=== PATIENT | female | born 1965 | race African-American/Black ===

== ENCOUNTER 2022-12-30 15:17 | Emergency (ER) | payer OTHER, SELFPAY ==
--- NOTE | ~2022-12-30 | XR_ITS ---
EXAMINATION: XR hip RT min 2V DATE: 12/30/2022 16:23 INDICATION: Right hip pain and swelling. TECHNIQUE: 2 views of right hip were obtained. COMPARISON: None. FINDINGS: Bone alignment is normal. No fracture. There is mild right hip osteoarthritis. IMPRESSION: 1. Mild right hip osteoarthritis. Reviewed, dictated and finalized at location A.
--- NOTE | ~2022-12-30 | US_ITS ---
EXAMINATION: US abdomen limited DATE: 12/30/2022 18:42 INDICATION: n/v, elevated lipase TECHNIQUE: Multiple grayscale and Doppler ultrasound images of limited portions of the abdomen were o btained. COMPARISON: None available. FINDINGS: The visualized portions of the pancreas are normal. The liver is enlarged with increased ec hogenicity and normal echotexture. No surface nodularity. Normal hepatopetal flow in the main portal vein. The gallbladder is normal with no abnormal wall thickening, pericholecystic fluid or stones. Th e common bile duct measures 6 mm. There was no sonographic Carmona sign. IMPRESSION: Normal limited abdominal ultrasound findings. Reviewed, dictated and finalized at location K.
[2022-12-30 15:27] VITALS: BP 158/106; PULSE 79; RESP 20; TEMP 36.2; O2SAT 98
--- NOTE | 2022-12-30 16:22 | ED.GENADULT ---
HPI - General Adult General Chief complaint: Unspecified Stated complaint: hip pain/ nausea/vomiting Time Seen by Provider: 12/30/22 15:47 History of Present Illness HPI narrative: 57 year old female here for evaluation of nausea, vomiting and diarrhea x7 days. Patient states that she has had numerous episodes of vomiting nonbloody/nonbilious emesis and numerous episodes of watery stools over the past 7 days. She has been able to tolerate some p.o. but feels dehydrated. She took a COVID test at home that was negative. States that 3 days ago she started to have right-sided hip pain without any trigger. The pain is worse with range of motion of the hip and with bearing weight. Denies relief after taking Tylenol. Pain is in the lateral aspect of her right hip, occasionally radiates down into her foot. She denies any paresthesia. Related Data Allergies Allergy/AdvReac Type Severity Reaction Status Date / Time AVALOX Allergy Rash Uncoded 12/30/22 15:49 Review of Systems Review of Systems: Gen: Denies fevers or chills Eyes: Denies eye pain or visual change ENT: Denies congestion Respiratory: Denies shortness of breath or cough CV: Denies chest pain or palpitations GI: Reports nausea, vomiting and diarrhea : denies burning, urgency, frequency or hematuria Musculoskeletal: Reports right hip pain Neuro: Denies numbness, tingling, weakness or focal weakness Skin: Denies rash Except as documented, all other systems reviewed and negative Exam Narrative: APPEARANCE: Well appearing, no pain in distress, well-nourished. Head: Normocephalic and atraumatic. EYES: PERRLA/EOMI, conjunctivae clear NOSE: No nasal drainage EARS: External ear normal in appearance THROAT: Oropharynx is clear. Mucous membranes are moist. NECK: Supple. No adenopathy, no masses. RESPIRATORY: Airway patent, respirations nonlabored. Clear to auscultation bilaterally, no rales, rhonchi, wheezing. CARDIOVASCULAR: strong dp/pt pulses. ABDOMINAL: Normoactive bowel sounds. Soft, nontender, nondistended. No rebound tenderness or guarding. MUSCULOSKELETAL: Full range of motion of his wrist. Notes pain with flexion at the hip. Straight leg raise is negative. She has bony tenderness to palpation along the right acetabulum. NEURO: Normal speech. No focal neurologic deficits. SKIN: Skin is warm and dry. No rashes. PSYCHIATRIC: Normal affect/mood. Course Vital Signs Vital signs: Vital Signs Temperature 97.2 F L 12/30/22 15:27 Pulse Rate 79 12/30/22 15:27 Respiratory Rate 20 12/30/22 15:27 Blood Pressure 158/106 H 12/30/22 15:27 Pulse Oximetry 98 12/30/22 15:27 Oxygen Delivery Room Air 12/30/22 15:27 Temperature 98.0 F 12/30/22 19:00 Pulse Rate 77 12/30/22 19:00 Respiratory Rate 19 12/30/22 19:00 Blood Pressure 141/80 H 12/30/22 19:00 Pulse Oximetry 100 12/30/22 19:00 Oxygen Delivery Room Air 12/30/22 15:27 Medical Decision Making MDM Narrative Medical decision making narrative: 57 year old female here for evaluation of n/v and right hip pain x 3 days. She is nontoxic in appearance and has no abdominal tenderness on exam. Basic labs are unremarkable but she does have an elevated lipase at 505. Ultrasound was obtained given the slightly elevated lipase but she has no acute findings. Hip x-rays with evidence of arthritis. Patient was given fluids, pain meds, and antiemetics with improvement of her symptoms. She is able to walk; no pain with passive range of motion to suggest septic joint. Likely gastroenteritis and arthritis in the hip. No incontinence or retention of bowel or bladder. Patient be sent home with zofran as needed. Vital Signs Vital Signs: Vital Signs Temperature 97.2 F L 12/30/22 15:27 Pulse Rate 79 12/30/22 15:27 Respiratory Rate 20 12/30/22 15:27 Blood Pressure 158/106 H 12/30/22 15:27 Pulse Oximetry 98 12/30/22 15:27 Oxygen Delivery Room Air 12/30/22 15:27 Temperature 98
[2022-12-30 16:43] LABS: Basophils Percent Auto 0.5 % (0.2-1.2); Eosinophils Absolute Auto 0.1 K/mm3 (0-0.3); Eosinophils Percent Auto 1.8 % (0-4.4); Hematocrit 38.9 % (37.0-47.0); Hemoglobin 12.1 g/dL (12.0-15.0); Immature Granulocyte Absolute 0.02 K/mm3 (0.00-0.031); Immature Granulocyte Percent A 0.3 % (0-0.5); Lymphocytes Absolute Auto 2.03 K/mm3 (0.9-3.2); Lymphocytes Percent Auto 25.9 % (18.3-44.2); Mean Corpuscular HGB Conc 31.1 g/dl (32-36); Mean Corpuscular Hemoglobin 28.9 pg (26-34); Mean Corpuscular Volume 93.1 fl (80-100); Mean Platelet Volume 9.9 fl (7.4-10.4); Monocytes Absolute Auto 0.5 K/mm3 (0.1-0.6); Monocytes Percent Auto 6.6 % (2.6-8.5); Neutrophils Absolute Auto 5.1 K/mm3 (1.3-6.7); Neutrophils Percent Auto 64.9 % (45.5-73.1); Platelet Count Result 193 k/mm3 (150-375); Red Blood Count 4.18 M/mm3 (4.2-5.4); Red Cell Distribution Width 13.3 % (11.5-14.5); White Blood Count 7.9 K/mm3 (4.5-10.0)
[2022-12-30] MEDS: ONDANSETRON INJ 4 MG/2 ML VIAL IV PUSH (16:45)
[2022-12-30] MEDS: SODIUM CHLORIDE 0.9% IV 1,000 ML 999 ML IV CONT (16:45)
[2022-12-30] MEDS: FAMOTIDINE 20 MG/2 ML VIAL IV PUSH (16:45)
[2022-12-30 16:54] LABS: Alanine Aminotransferase 14 U/L (6-35); Albumin Level 4.4 g/dL (3.5-5.1); Alkaline Phosphatase 90 U/L (38-126); Anion Gap 6 mmol/L (8-16); Aspartate Amino Transferase 34 U/L (14-36); Bilirubin,Total 0.4 mg/dL (0.2-1.3); Blood Urea Nitrogen 11 mg/dL (7-17); Calcium 8.9 mg/dL (8.4-10.2); Carbon Dioxide 33 mmol/L (22-30); Chloride 102 mmol/L (98-107); Estimated CRCL calculation 97 ml/min; Estimated Glomerular Filt Rate > 60; Glucose 97 mg/dL (65-110); Lipase 505 U/L (23-300); Potassium 3.3 mmol/L (3.4-5.0); Sodium 141 mmol/L (137-145)
[2022-12-30 19:00] VITALS: BP 141/80; PULSE 77; RESP 19; TEMP 36.7; O2SAT 100
[2022-12-30] MEDS: HYDROcodone/acetaminophen (*CRX) 5-325 MG TABLET 1 TAB PO (19:43)
--- NOTE | 2022-12-30 20:15 | PC.NURSE ---
Pt. contacted ED reporting this RN did not remove her IV. upon discharge pt. had long sleeve sweatshirt on and was alert and orientedx4 at time of discharge and never communicated to RN that pt. had an IV in place.
== END 2022-12-30 19:43 | disposition home or self-care (01) ==
PROVIDERS: Emergency Provider Physician Assistant; PCP Family Medicine
DX: K29.70 Gastritis, unspecified, without bleeding (principal); M16.11 Unilateral primary osteoarthritis, right hip
CPT/HCPCS: 36415; 73502; 76705; 80053; 83690; 85025; 96361; 96374; 96375; 99284; A9270; J2405; J7030

== ENCOUNTER 2023-08-10 15:06 | Emergency (ER) | payer OTHER, SELFPAY ==
[2023-08-10 15:11] VITALS: BP 179/97; PULSE 92; RESP 14; TEMP 36.2; O2SAT 99
--- NOTE | 2023-08-10 17:52 | ED.GENADULT ---
HPI - General Adult General Chief complaint: Extremity Problem,Nontraumatic Stated complaint: left sciatic nerve pain Time Seen by Provider: 08/10/23 16:58 Source: patient Mode of arrival: ambulatory Limitations: no limitations History of Present Illness HPI narrative: This is a 58-year-old female who presents to the ED with chief complaint of acute on chronic left lower back pain. Reports the pain radiates into the left leg posteriorly down to the level of the ankle. She also reports occasional paresthesias in the toes. She states this problem has been going on for several years but has not been seen by a spine doctor. Denies any fevers, chills, saddle anesthesia, bowel or bladder dysfunction. Related Data Allergies Allergy/AdvReac Type Severity Reaction Status Date / Time AVALOX Allergy Rash Uncoded 08/10/23 15:14 Review of Systems Review of Systems: All systems as dictated in HPI Exam Narrative: GENERAL: Well-appearing, well-nourished, and in no acute distress. She is ambulatory with use of cane. HEAD: Normocephalic, atraumatic. EYES: PERRLA and EOMI. ENT: Nares clear, no rhinorrhea or epistaxis. Mucous membranes moist. Oropharynx without tonsillar hypertrophy exudate or other lesions. NECK: Supple. No adenopathy or masses. CHEST: No respiratory distress. Clear to auscultation. No wheezes rales or rhonchi HEART: Regular rate and rhythm. No murmur heard. Normal peripheral pulses. ABDOMEN: Soft, nontender, nondistended, normal active bowel sounds. MSK: Mild left lumbar paraspinal tenderness. Mild left SI joint tenderness. No midline spinal tenderness. Positive straight leg raise on the left. Negative on the right. SKIN: Warm, dry, no rash. NEURO: Alert and oriented x3. No focal deficits. 5/5 strength and sensation in the upper and lower extremities. PSYCH: Normal mood and affect. Course Vital Signs Vital signs: Vital Signs Temperature 97.2 F L 08/10/23 15:11 Pulse Rate 92 08/10/23 15:11 Respiratory Rate 14 08/10/23 15:11 Blood Pressure 179/97 H 08/10/23 15:11 Pulse Oximetry 99 08/10/23 15:11 Oxygen Delivery Room Air 08/10/23 15:11 Temperature 97.2 F L 08/10/23 15:11 Pulse Rate 92 08/10/23 15:11 Respiratory Rate 14 08/10/23 15:11 Blood Pressure 179/97 H 08/10/23 15:11 Pulse Oximetry 99 08/10/23 15:11 Oxygen Delivery Room Air 08/10/23 15:11 Medical Decision Making MDM Narrative Medical decision making narrative: This is a 58-year-old female with chief complaint of acute on chronic low back pain. It is causing sciatica. Vitals are normal. Exam shows straight leg raise is positive. No red flag back signs. She was given Toradol here in the ED. prescription for naproxen given. Insert decision making to avoid CT scan today. Encouraged follow-up with PCP. Pt will be discharged in stable condition. Return precautions given and supportive measures discussed. Pt is understanding and agreeable with plan for discharge and follow-up with PCP. Vital Signs Vital Signs: Vital Signs Temperature 97.2 F L 08/10/23 15:11 Pulse Rate 92 08/10/23 15:11 Respiratory Rate 14 08/10/23 15:11 Blood Pressure 179/97 H 08/10/23 15:11 Pulse Oximetry 99 08/10/23 15:11 Oxygen Delivery Room Air 08/10/23 15:11 Temperature 97.2 F L 08/10/23 15:11 Pulse Rate 92 08/10/23 15:11 Respiratory Rate 14 08/10/23 15:11 Blood Pressure 179/97 H 08/10/23 15:11 Pulse Oximetry 99 08/10/23 15:11 Oxygen Delivery Room Air 08/10/23 15:11 Discharge Plan Discharge Clinical Impression: Sciatica Patient Disposition: Home, Self-Care Condition: Stable Instructions: Antibiotic Form, Lumbar Radiculopathy (ED) Additional Instructions: Your exam shows evidence of sciatica today. Please take naproxen twice per day for anti-inflammatory relief. Do not take any other NSAIDs with this medication. You could also use Tylenol and muscle relaxers. I
[2023-08-10] MEDS: KETOROLAC 30 MG/ML VIAL (*BKC) IM (18:15)
== END 2023-08-10 19:05 | disposition home or self-care (01) ==
PROVIDERS: Emergency Provider Physician Assistant; PCP Internal Medicine
DX: M54.42 Lumbago with sciatica, left side (principal)
CPT/HCPCS: 96372; 99283; J1885

== ENCOUNTER 2024-03-07 15:31 | Emergency (ER) | payer OTHER, SELFPAY ==
--- NOTE | ~2024-03-07 | CT_ITS ---
CT abdomen pelvis w con Ordering provider: Radha Alberto PA-C History: 58 years Female with . abd pain, blood in stool . Comparison: None. Technique: CT abdomen and pelvis with IV and without oral contrast. Radiation reduction technique uti lized. The DLP is 1059.26 mGy. Findings: VISUALIZED LOWER CHEST: Normal. Minimal pleural thickening in the posterior right lower lobe area. De pendent atelectatic changes. UPPER ABDOMINAL ORGANS: Liver: Normal. Gallbladder: Normal. Spleen: Normal. Stomach/duodenum: Postoperative changes in the stomach. Pancreas: Normal. Adrenals: Normal. Kidneys: Tiny cyst in the left kidney midpole. PELVIC ORGANS: The bladder is underfilled.. BOWEL AND MESENTERY: Colon: No evidence of diverticulitis. Normal appendix. Small Bowel: Normal. No obstruction. Peritoneum/mesentery: No free air or free fluid. No mesenteric lymphadenopathy. RETROPERITONEUM: Normal aorta. No retroperitoneal lymphadenopathy. MUSCULOSKELETAL: Superficial soft tissues: The superficial soft tissues are normal. Bones: Age appropriate degenerative changes of the spine. IMPRESSION: 1. No acute abdominal process with no evidence of appendicitis, diverticulitis or intestinal obstruc tion. Reviewed, dictated and finalized at location A. IMPRESSION: 1. No acute abdominal process with no evidence of appendicitis, diverticulitis or intestinal obstruction.
[2024-03-07 15:38] VITALS: BP 145/105; PULSE 75; RESP 18; TEMP 36.7; O2SAT 99
--- NOTE | 2024-03-07 15:57 | ED.GIBLEED ---
HPI - GI Bleed General Chief complaint: GI Bleed Stated complaint: GI Bleed Time Seen by Provider: 03/07/24 15:34 Source: patient Mode of arrival: ambulatory Limitations: no limitations History of Present Illness HPI Narrative: This is a 58-year-old female that presents to the emergency department for blood in the stool. Reports bloating and crampy abdominal pain today. She has had bloody diarrhea. Reports history of GI bleed in the past requiring blood transfusion. She is not on anticoagulation. Denies fevers or vomiting. Related Data Allergies Allergy/AdvReac Type Severity Reaction Status Date / Time AVALOX Allergy Rash Uncoded 08/10/23 15:14 Review of Systems Review of Systems: CONSTITUTIONAL: Denies fever GASTROINTESTINAL: Reports abdominal pain, and diarrhea. All systems reviewed & are unremarkable except as noted in HPI and below PMFSH Past Medical History Medical History (Updated 03/07/24 @ 17:31 by Radha Alberto PA-C) History of hyperlipidemia History of hypertension History of hypothyroidism Surgical History Surgical History (Updated 03/07/24 @ 15:59 by Radha Alberto PA-C) History of gastric bypass Social History Social History (Updated 03/07/24 @ 16:00 by Radha Alberto PA-C) Smoking status: Never smoker Exam Narrative: GENERAL: Well-appearing, well-nourished, and in no acute distress. HEAD: Normocephalic, atraumatic. EYES: EOMI. CHEST: Clear to auscultation. No respiratory distress. No wheezes rales or rhonchi HEART: Regular rate and rhythm. No murmur heard. Normal peripheral pulses. ABDOMEN: Soft, nondistended, normal active bowel sounds. Mild tenderness to palpation throughout the right abdomen, without guarding EXTREMITIES: Normal range of motion. No edema. SKIN: Warm, dry, no rash. NEURO: No focal deficits. Alert and oriented x3. PSYCH: Normal mood and affect RECTAL: No active bleeding. Hemoccult negative. No obvious hemorrhoids or fissures Course Course Emergency Course: patient updated on her workup and agrees with plan of care Vital Signs Vital signs: Vital Signs Temperature 98.1 F 03/07/24 15:38 Pulse Rate 75 03/07/24 15:38 Respiratory Rate 18 03/07/24 15:38 Blood Pressure 145/105 H 03/07/24 15:38 Pulse Oximetry 99 03/07/24 15:38 Oxygen Delivery Room Air 03/07/24 15:38 Temperature 98.1 F 03/07/24 15:38 Pulse Rate 87 03/07/24 16:06 Respiratory Rate 18 03/07/24 15:38 Blood Pressure 125/99 H 03/07/24 16:06 Pulse Oximetry 99 03/07/24 15:38 Oxygen Delivery Room Air 03/07/24 15:38 MDM - GI Bleed MDM Narrative Medical decision making narrative: Patient presents to the emergency department for episode of abdominal bloating and bloody diarrhea. She is afebrile and nontoxic appearing. Her vitals are stable. CBC with mild leukocytosis to 10.8. Metabolic panel without concerning findings. CT abdomen and pelvis is without acute findings. No active bleeding. Patient was Hemoccult negative. She is not on any anticoagulation. Patient updated on her workup and agrees with plan of care. Will send stool cultures. She was instructed to have close follow-up with her primary provider for further evaluation. Will be started on empiric antibiotics for bloody diarrhea. She was given warnings to return to the ER Differential Diagnosis Differential diagnosis: Likely hemorrhoids, infectious diarrhea, Lower gastrointestinal hemorrhage, hematochezia and anal fissure Lab Data Attestation: I reviewed the patient's lab results. 03/07/24 16:07 03/07/24 16:07 Labs: Lab Results 03/07/24 Range/Units 16:07 WBC 10.8 H (4.5-10.0) K/mm3 RBC 4.52 (4.2-5.4) M/mm3 Hgb 13.0 (12.0-15.0) g/dL Hct 40.8 (37.0-47.0) % MCV 90.3 (80-100) fl MCH 28.8 (26-34) pg MCHC 31.9 L (32-36) g/dl RDW 13.4 (11.5-14.5) % Plt Count 251 (150-375) k/mm3 MPV 10.3 (7.4-10.4) fl Immature Gra
[2024-03-07 16:02] VITALS: BP 125/90; PULSE 73
[2024-03-07 16:04] VITALS: BP 108/85; PULSE 79
[2024-03-07 16:06] VITALS: BP 125/99; PULSE 87
[2024-03-07 16:16] LABS: Basophils Absolute Auto 0.1 K/mm3 (0.0-0.1); Basophils Percent Auto 0.6 % (0.2-1.2); Eosinophils Absolute Auto 0.1 K/mm3 (0-0.3); Eosinophils Percent Auto 0.6 % (0-4.4); Hematocrit 40.8 % (37.0-47.0); Immature Granulocyte Absolute 0.02 K/mm3 (0.00-0.031); Immature Granulocyte Percent A 0.2 % (0-0.5); Lymphocytes Absolute Auto 2.27 K/mm3 (0.9-3.2); Mean Corpuscular HGB Conc 31.9 g/dl (32-36); Mean Corpuscular Hemoglobin 28.8 pg (26-34); Mean Corpuscular Volume 90.3 fl (80-100); Mean Platelet Volume 10.3 fl (7.4-10.4); Monocytes Absolute Auto 0.4 K/mm3 (0.1-0.6); Monocytes Percent Auto 3.9 % (2.6-8.5); Neutrophils Percent Auto 73.7 % (45.5-73.1); Platelet Count Result 251 k/mm3 (150-375); Red Blood Count 4.52 M/mm3 (4.2-5.4); Red Cell Distribution Width 13.4 % (11.5-14.5); White Blood Count 10.8 K/mm3 (4.5-10.0)
[2024-03-07 16:28] LABS: Alanine Aminotransferase 10 U/L (6-35); Albumin Level 4.7 g/dL (3.5-5.1); Alkaline Phosphatase 93 U/L (38-126); Anion Gap 12 mmol/L (4-12); Aspartate Amino Transferase 20 U/L (14-36); Bilirubin,Total 0.5 mg/dL (0.2-1.3); Blood Urea Nitrogen 18 mg/dL (7-17); Calcium 9.7 mg/dL (8.4-10.2); Carbon Dioxide 26 mmol/L (22-30); Chloride 103 mmol/L (98-107); Estimated CRCL calculation 92 ml/min; Estimated Glomerular Filt Rate > 60; Glucose 117 mg/dL (65-110); Potassium 3.5 mmol/L (3.4-5.0); Sodium 141 mmol/L (137-145)
[2024-03-07 17:07] LABS: INR 1.1
[2024-03-07 17:26] LABS: Partial Thromboplastin Time 35.8 Seconds (22.3-36.8)
[2024-03-07] MEDS: PANTOPRAZOLE SODIUM IV 40 MG VIAL IV PUSH (17:31)
[2024-03-07] MEDS: ONDANSETRON INJ 4 MG/2 ML VIAL IV PUSH (17:31)
== END 2024-03-07 18:06 | disposition home or self-care (01) ==
PROVIDERS: Emergency Provider Physician Assistant; PCP Internal Medicine
DX: R19.5 Other fecal abnormalities (principal); E03.9 Hypothyroidism, unspecified; E78.5 Hyperlipidemia, unspecified; I10 Essential (primary) hypertension
CPT/HCPCS: 36415; 74177; 80053; 85025; 85610; 85730; 86850; 86900; 86901; 87045; 87427; 87449; 89055; 96374; 96375; 99284; C9113; J2405; Q9967